=== PATIENT | male | born 1990 | race Two or more races ===

== ENCOUNTER 2024-05-10 09:30 | Emergency (ER) | payer OTHER ==
[~2024-05-10] VITALS: Ht 167.6 cm; Wt 70.3 kg
[2024-05-10] MEDS ORDERED: 0.9 % SODIUM CHLORIDE 1,000 ML IV SCH (10:30)
[2024-05-10 11:22] LABS: ALBUMIN 4.4 gm/dL (3.4-5.0); BILIRUBIN TOTAL 1.94 mg/dL (0.3-1.2); CALCIUM 10.1 mg/dL (8.5-10.1); CREATININE SERUM 1.33 mg/dL (0.70-1.30); GFR 62.31; GLOBULINA 3.4 G/DL (2.4-3.5); HEMATOCRIT 48.4 % (39.0-48.0); HEMOGLOBIN 16.8 g/dL (13-16.00); MEAN CELL VOLUME 97.3 fL (80.0-100.00); MEAN CORPUSCULAR HEMOGLOBIN 33.8 pg (27.00-32.0); MEAN CORPUSCULAR HGB CONC 34.7 g/dl (32.0-36.0); PLATELET COUNT 322 K/uL (150-450); POTASSIUM 3.65 mEq/L (3.5-5.1); RED BLOOD COUNT 4.98 M/uL (4.00-6.00); RED CELL DISTRIBUTION WIDTH 13.6 % (11.5-14.5); TOTAL PROTEIN 7.8 gm/dL (6.4-8.2)
[2024-05-10 11:29] LABS: INR 0.99; PARTIAL THROMBOPLASTIN TIME 26.7 SECONDS (22.0-34.0); PROTHROMBIN TIME 10.8 SECONDS (9.0-11.5)
== END 2024-05-10 12:11 | disposition home or self-care (01) ==
LOC: ER 09:32
PROVIDERS: General Practice
DX: F14.10 Cocaine abuse, uncomplicated (principal); R07.89 Other chest pain

== ENCOUNTER 2024-05-10 18:56 | Emergency (ER) | payer OTHER ==
[~2024-05-10] VITALS: Ht 167.6 cm; Wt 68.0 kg
[2024-05-10] MEDS ORDERED: DIAZEPAM 5 MG TABLET PO STA (20:39)
[2024-05-10] MEDS ORDERED: NALOXONE HCL 1 MG/ML DISP.SYRIN IV STA (20:41)
[2024-05-10] MEDS ORDERED: LORazepam 2 MG/ML VIAL IM STA (20:53)
[2024-05-10] MEDS ORDERED: LORazepam 2 MG/ML DISP.SYRIN ONE (21:02)
== END 2024-05-10 21:06 | disposition home or self-care (01) ==
LOC: ER 18:59
DX: R53.81 Other malaise (principal); F10.939 Alcohol use, unspecified with withdrawal, unspecified; F14.10 Cocaine abuse, uncomplicated